=== PATIENT | female | born 1975 | race African-American/Black ===

== ENCOUNTER 2022-05-07 17:29 | Inpatient (IN) ==
[2022-05-07] MEDS ORDERED: cloNIDine 0.1 MG TABLET PO STA (17:48)
[2022-05-07] MEDS ORDERED: LORazepam 2 MG/1 ML VIAL IV STA (17:48)
[2022-05-07] MEDS ORDERED: SODIUM CHLORIDE 0.9% 1,000 ML IV STA (17:48)
[2022-05-07] MEDS ORDERED: ACETAMINOPHEN 500 MG TABLET PO STA (17:59)
[2022-05-07 18:01] LABS: Basophils % 0.2 % (0.0-0.8); Eosinophils % 0.3 % (0.00-10.9); Hematocrit 44.6 VOL% (35.7-47.0); Hemoglobin 14.2 GM/DL (12.0-16.0); Immature Granulocytes % 0.2 %; Immature Granulocytes Absolute 0.01 #; Lymphocytes # 1.5 10*3/uL (1.4-4.0); Lymphocytes % 24.3 % (21.3-54.2); Mean Corpuscular HGB Conc 31.8 GM/DL (32-36); Mean Corpuscular Volume 96.5 FL (87-102); Mean Platelet Volume 11.1 FL (9.6-12.0); Monocytes # 0.6 10*3/uL (0.11-0.8); Monocytes % 9.3 % (1.7-12.7); Neutrophils % 65.7 % (38.7-73.9); Platelet Count 217 T/CUMM (130-400); Red Blood Count 4.62 MC/CUMM (3.8-5.5); White Blood Count 6.1 T/CUMM (4-12)
[2022-05-07 18:18] LABS: Alanine Aminotransferase 27 U/L (13-56); Albumin 3.8 G/DL (3.4-5.0); Alkaline Phosphatase 125 U/L (45-117); Aspartate Amino Transferase 29 U/L (0-37); Blood Urea Nitrogen 12 MG/DL (7-18); Calcium 8.5 MG/DL (8.5-10.1); Carbon Dioxide 32 MMOL/L (21-32); Chloride 99 MMOL/L (98-107); Glucose 81 MG/DL (74-106); Osmolality,Calculated 271.8 MOS/KG (273-304); Potassium 4.3 MMOL/L (3.5-5.1); Sodium 137 MMOL/L (136-145); Total Protein 8.6 G/DL (6.4-8.2)
[2022-05-07 18:29] LABS: Acetaminophen < 2.0 UG/ML (10-30); Salicylate < 2.8 MG/DL (2.8-20)
[2022-05-07 18:39] LABS: Bacteria,Urine Occasional /HPF (Few); Mucus,Urine Occasional /LPF (Occasional); RBC,Urine 2 /HPF (0-4); Squamous Epithelial Cell,Urine Occasional /HPF (0-10); Urine Appearance Clear (Clear); Urine Color Yellow (Yellow)
[2022-05-07 18:40] LABS: Bilirubin,Urine Moderate mg/dL (Negative); Blood, Urine Small mg/dL (Negative); Glucose,Urine (UA) Negative (Negative); Ketones,Urine 80 mg/dL (Negative); Nitrite,Urine Negative (Negative); Protein,Urine >=300 mg/dL (Negative); Urine Specific Gravity >= 1.030 (1.001-1.035)
[2022-05-07 18:52] LABS: Barbiturates Screen,Urine Negative (Negative); Benzodiazepines Screen,Urine Negative (Negative); Cannabinoid Screen,Urine Negative (Negative); Opiate Screen,Urine Negative (Negative); Phencyclidine Screen,Urine Negative (Negative)
[2022-05-07] MEDS ORDERED: LACTULOSE 20 GM/30 ML UDCUP PO STA (19:19)
[2022-05-07] MEDS ORDERED: ONDANSETRON 4 MG/2 ML VIAL IV PRN (19:34)
[2022-05-07] MEDS: LACTATED RINGERS 1,000 ML IV SCH (20:15)
[2022-05-07] MEDS: ENOXAPARIN 40 MG/0.4 ML SYRINGE SUBCUT SCH (21:15)
[2022-05-08] MEDS: hydrALAZINE 20 MG/1 ML VIAL IV PRN ×3 (00:05→15:15)
[2022-05-08] MEDS: ALBUTEROL/IPRATROPIUM 3 ML NEB RESP TX PRN ×3 (00:50→15:40)
[2022-05-08] MEDS ORDERED: ACETAMINOPHEN 500 MG TABLET ONE (00:56)
[2022-05-08] MEDS ORDERED: ACETAMINOPHEN 500 MG TABLET PO STA (00:59)
[2022-05-08] MEDS ORDERED: ALBUTEROL/IPRATROPIUM 3 ML NEB RESP TX SCH (01:00)
[2022-05-08 04:42] LABS: Basophils % 0.1 % (0.0-0.8); Hematocrit 41.2 VOL% (35.7-47.0); Hemoglobin 12.7 GM/DL (12.0-16.0); Immature Granulocytes % 0.4 %; Immature Granulocytes Absolute 0.04 #; Lymphocytes # 1.9 10*3/uL (1.4-4.0); Lymphocytes % 18.4 % (21.3-54.2); Mean Corpuscular HGB Conc 30.8 GM/DL (32-36); Mean Platelet Volume 10.8 FL (9.6-12.0); Monocytes # 0.6 10*3/uL (0.11-0.8); Monocytes % 6.2 % (1.7-12.7); Neutrophils % 74.9 % (38.7-73.9); Platelet Count 199 T/CUMM (130-400); Red Blood Count 4.16 MC/CUMM (3.8-5.5); White Blood Count 10.1 T/CUMM (4-12)
[2022-05-08 05:05] LABS: Albumin 3.1 G/DL (3.4-5.0); Bilirubin,Total 0.4 MG/DL (0.20-1.00); Calcium 8.5 MG/DL (8.5-10.1); Thyroid Stimulating Hormone 0.241 uIU/ml (0.358-3.74); Total Protein 7.9 G/DL (6.4-8.2)
[2022-05-08] MEDS: ACETAMINOPHEN 325 MG TABLET PO PRN ×2 (09:30→22:30)
[2022-05-08] MEDS: PANTOPRAZOLE 40 MG TABLET PO SCH (09:30)
[2022-05-08] MEDS ORDERED: ALBUTEROL/IPRATROPIUM 3 ML NEB RESP TX PRN (11:01)
[2022-05-08] MEDS ORDERED: BENZONATATE 100 MG CAPSULE PO PRN (11:02)
[2022-05-08] MEDS: PIPERACILLIN/TAZOBACTAM 3,375 MG in SODIUM CHLORIDE 0.9% 100 ML IV SCH ×2 (13:43→21:20)
[2022-05-08] MEDS: amLODIPine 10 MG TABLET PO SCH (13:49)
[2022-05-08] MEDS: VANCOMYCIN INJ 1,000 MG in SODIUM CHLORIDE 0.9% 250 ML IV SCH (18:00)
[2022-05-08] MEDS: ENOXAPARIN 40 MG/0.4 ML SYRINGE SUBCUT SCH (21:23)
[2022-05-09] MEDS: VANCOMYCIN INJ 1,000 MG in SODIUM CHLORIDE 0.9% 250 ML IV SCH ×2 (02:09→14:42)
[2022-05-09] MEDS: PIPERACILLIN/TAZOBACTAM 3,375 MG in SODIUM CHLORIDE 0.9% 100 ML IV SCH ×3 (03:26→20:46)
[2022-05-09] MEDS: ACETAMINOPHEN 325 MG TABLET PO PRN (05:59)
[2022-05-09] MEDS: amLODIPine 10 MG TABLET PO SCH (09:10)
[2022-05-09] MEDS: PANTOPRAZOLE 40 MG TABLET PO SCH (09:10)
[2022-05-09] MEDS: SODIUM CHLORIDE 0.9% 1,000 ML IV SCH ×3 (10:57→16:20)
[2022-05-09] MEDS: LACTATED RINGERS 1,000 ML IV SCH (13:51)
[2022-05-09] MEDS: ENOXAPARIN 40 MG/0.4 ML SYRINGE SUBCUT SCH (20:46)
[2022-05-10] MEDS: VANCOMYCIN INJ 1,000 MG in SODIUM CHLORIDE 0.9% 250 ML IV SCH ×2 (01:03→14:59)
[2022-05-10] MEDS: PIPERACILLIN/TAZOBACTAM 3,375 MG in SODIUM CHLORIDE 0.9% 100 ML IV SCH ×3 (03:53→20:39)
[2022-05-10 06:10] LABS: Basophils % 0.4 % (0.0-0.8); Eosinophils # 0.2 10*3/uL (0.0-0.87); Eosinophils % 3.9 % (0.00-10.9); Hematocrit 42.4 VOL% (35.7-47.0); Hemoglobin 13.1 GM/DL (12.0-16.0); Immature Granulocytes % 0.4 %; Immature Granulocytes Absolute 0.02 #; Lymphocytes # 2.6 10*3/uL (1.4-4.0); Lymphocytes % 57.5 % (21.3-54.2); Mean Corpuscular HGB Conc 30.9 GM/DL (32-36); Mean Corpuscular Volume 98.4 FL (87-102); Mean Platelet Volume 11.4 FL (9.6-12.0); Monocytes # 0.4 10*3/uL (0.11-0.8); Monocytes % 9.2 % (1.7-12.7); Neutrophils % 28.6 % (38.7-73.9); Platelet Count 169 T/CUMM (130-400); Red Blood Count 4.31 MC/CUMM (3.8-5.5); Red Cell Distribution Width 14.3 % (9.3-17.3); White Blood Count 4.6 T/CUMM (4-12)
[2022-05-10] MEDS: SODIUM CHLORIDE 0.9% 1,000 ML IV SCH (06:34)
[2022-05-10 06:37] LABS: Alanine Aminotransferase 20 U/L (13-56); Albumin 2.8 G/DL (3.4-5.0); Alkaline Phosphatase 86 U/L (45-117); Aspartate Amino Transferase 17 U/L (0-37); Bilirubin,Total < 0.39 MG/DL (0.20-1.00); Blood Urea Nitrogen 7 MG/DL (7-18); Calcium 8.2 MG/DL (8.5-10.1); Carbon Dioxide 35 MMOL/L (21-32); Chloride 100 MMOL/L (98-107); Glucose 126 MG/DL (74-106); Osmolality,Calculated 274.7 MOS/KG (273-304); Potassium 3.3 MMOL/L (3.5-5.1); Sodium 138 MMOL/L (136-145); Total Protein 7.7 G/DL (6.4-8.2)
[2022-05-10 06:45] LABS: Eosinophils 3 % (0-10); Lymphocytes 48 % (20-55); Platelet Estimate Adequate; Total Cells Counted 100
[2022-05-10 06:46] LABS: Stomatocytes Few
[2022-05-10] MEDS ORDERED: POTASSIUM CHLORIDE 20 MEQ TABLET PO ONE (07:42)
[2022-05-10] MEDS: PANTOPRAZOLE 40 MG TABLET PO SCH (08:28)
[2022-05-10] MEDS: amLODIPine 10 MG TABLET PO SCH (08:28)
[2022-05-10] MEDS: hydrALAZINE 20 MG/1 ML VIAL IV PRN (12:18)
[2022-05-10] MEDS: ENOXAPARIN 40 MG/0.4 ML SYRINGE SUBCUT SCH (20:39)
[2022-05-11] MEDS: VANCOMYCIN INJ 1,000 MG in SODIUM CHLORIDE 0.9% 250 ML IV SCH ×3 (00:49→17:45)
[2022-05-11] MEDS: PIPERACILLIN/TAZOBACTAM 3,375 MG in SODIUM CHLORIDE 0.9% 100 ML IV SCH ×3 (03:10→20:41)
[2022-05-11 07:14] LABS: Basophils % 0.2 % (0.0-0.8); Eosinophils # 0.2 10*3/uL (0.0-0.87); Eosinophils % 4.5 % (0.00-10.9); Hematocrit 43.1 VOL% (35.7-47.0); Hemoglobin 13.2 GM/DL (12.0-16.0); Lymphocytes # 3.1 10*3/uL (1.4-4.0); Lymphocytes % 63.5 % (21.3-54.2); Mean Corpuscular HGB Conc 30.6 GM/DL (32-36); Mean Corpuscular Volume 97.7 FL (87-102); Mean Platelet Volume 11.5 FL (9.6-12.0); Monocytes # 0.3 10*3/uL (0.11-0.8); Monocytes % 6.1 % (1.7-12.7); Neutrophils % 25.7 % (38.7-73.9); Platelet Count 181 T/CUMM (130-400); Red Blood Count 4.41 MC/CUMM (3.8-5.5); Red Cell Distribution Width 14.3 % (9.3-17.3); White Blood Count 4.9 T/CUMM (4-12)
[2022-05-11 07:34] LABS: Calcium 8.3 MG/DL (8.5-10.1); Potassium 3.7 MMOL/L (3.5-5.1)
[2022-05-11 07:37] LABS: Osmolality,Calculated 279.4 MOS/KG (273-304)
[2022-05-11 07:54] LABS: Eosinophils 1 % (0-10); Hypochromia Slight; Lymphocytes 67 % (20-55); Platelet Estimate Adequate; Total Cells Counted 100
[2022-05-11] MEDS: PANTOPRAZOLE 40 MG TABLET PO SCH (09:03)
[2022-05-11] MEDS: amLODIPine 10 MG TABLET PO SCH (09:03)
[2022-05-11] MEDS: ENOXAPARIN 40 MG/0.4 ML SYRINGE SUBCUT SCH (20:38)
[2022-05-12] MEDS: VANCOMYCIN INJ 1,000 MG in SODIUM CHLORIDE 0.9% 250 ML IV SCH ×4 (00:58→17:48)
[2022-05-12] MEDS: PIPERACILLIN/TAZOBACTAM 3,375 MG in SODIUM CHLORIDE 0.9% 100 ML IV SCH ×3 (03:53→20:43)
[2022-05-12 04:30] LABS: Basophils % 0.4 % (0.0-0.8); Eosinophils # 0.2 10*3/uL (0.0-0.87); Eosinophils % 3.5 % (0.00-10.9); Hematocrit 40.9 VOL% (35.7-47.0); Hemoglobin 12.7 GM/DL (12.0-16.0); Immature Granulocytes % 0.4 %; Immature Granulocytes Absolute 0.02 #; Lymphocytes # 3.1 10*3/uL (1.4-4.0); Lymphocytes % 64.8 % (21.3-54.2); Mean Corpuscular HGB Conc 31.1 GM/DL (32-36); Mean Corpuscular Volume 97.1 FL (87-102); Monocytes # 0.3 10*3/uL (0.11-0.8); Monocytes % 7.1 % (1.7-12.7); Neutrophils % 23.8 % (38.7-73.9); Platelet Count 191 T/CUMM (130-400); Red Blood Count 4.21 MC/CUMM (3.8-5.5); Red Cell Distribution Width 14.1 % (9.3-17.3); White Blood Count 4.8 T/CUMM (4-12)
[2022-05-12 04:49] LABS: Calcium 8.6 MG/DL (8.5-10.1); Osmolality,Calculated 280.4 MOS/KG (273-304); Potassium 3.6 MMOL/L (3.5-5.1)
[2022-05-12 05:38] LABS: Eosinophils 5 % (0-10); Lymphocytes 63 % (20-55); Total Cells Counted 100
[2022-05-12 05:39] LABS: Platelet Estimate Adequate
[2022-05-12] MEDS: amLODIPine 10 MG TABLET PO SCH (08:36)
[2022-05-12] MEDS: PANTOPRAZOLE 40 MG TABLET PO SCH (08:36)
[2022-05-12] MEDS: ENOXAPARIN 40 MG/0.4 ML SYRINGE SUBCUT SCH (20:43)
[2022-05-13] MEDS ORDERED: VANCOMYCIN INJ 1,500 MG in SODIUM CHLORIDE 0.9% 500 ML IV ONE
[2022-05-13] MEDS: PIPERACILLIN/TAZOBACTAM 3,375 MG in SODIUM CHLORIDE 0.9% 100 ML IV SCH ×3 (04:05→20:45)
[2022-05-13 05:40] LABS: Basophils % 0.5 % (0.0-0.8); Eosinophils # 0.3 10*3/uL (0.0-0.87); Eosinophils % 7.1 % (0.00-10.9); Hematocrit 40.8 VOL% (35.7-47.0); Hemoglobin 12.7 GM/DL (12.0-16.0); Lymphocytes # 2.9 10*3/uL (1.4-4.0); Lymphocytes % 66.1 % (21.3-54.2); Mean Corpuscular HGB Conc 31.1 GM/DL (32-36); Mean Platelet Volume 10.5 FL (9.6-12.0); Monocytes # 0.3 10*3/uL (0.11-0.8); Monocytes % 7.4 % (1.7-12.7); Neutrophils % 18.9 % (38.7-73.9); Platelet Count 182 T/CUMM (130-400); Red Blood Count 4.25 MC/CUMM (3.8-5.5); Red Cell Distribution Width 13.8 % (9.3-17.3); White Blood Count 4.3 T/CUMM (4-12)
[2022-05-13 05:59] LABS: Calcium 8.1 MG/DL (8.5-10.1); Osmolality,Calculated 276.5 MOS/KG (273-304)
[2022-05-13 06:03] LABS: Eosinophils 11 % (0-10); Lymphocytes 65 % (20-55); Platelet Estimate Adequate; Total Cells Counted 100
[2022-05-13] MEDS: amLODIPine 10 MG TABLET PO SCH (08:45)
[2022-05-13] MEDS: PANTOPRAZOLE 40 MG TABLET PO SCH (08:45)
[2022-05-13] MEDS: lisinopriL 10 MG TABLET PO SCH (08:45)
[2022-05-13] MEDS: VANCOMYCIN INJ 1,250 MG in SODIUM CHLORIDE 0.9% 250 ML IV SCH ×2 (08:49→15:57)
[2022-05-13] MEDS: hydrALAZINE 20 MG/1 ML VIAL IV PRN (16:33)
[2022-05-13] MEDS: ENOXAPARIN 40 MG/0.4 ML SYRINGE SUBCUT SCH (21:00)
[2022-05-14] MEDS: VANCOMYCIN INJ 1,250 MG in SODIUM CHLORIDE 0.9% 250 ML IV SCH ×2 (00:13→09:26)
[2022-05-14] MEDS: PIPERACILLIN/TAZOBACTAM 3,375 MG in SODIUM CHLORIDE 0.9% 100 ML IV SCH (04:25)
[2022-05-14 05:22] LABS: Basophils % 0.4 % (0.0-0.8); Eosinophils # 0.4 10*3/uL (0.0-0.87); Eosinophils % 7.8 % (0.00-10.9); Hematocrit 39.2 VOL% (35.7-47.0); Hemoglobin 12.4 GM/DL (12.0-16.0); Immature Granulocytes % 0.2 %; Immature Granulocytes Absolute 0.01 #; Lymphocytes # 2.8 10*3/uL (1.4-4.0); Lymphocytes % 51.9 % (21.3-54.2); Mean Corpuscular HGB Conc 31.6 GM/DL (32-36); Mean Platelet Volume 11.2 FL (9.6-12.0); Monocytes # 0.5 10*3/uL (0.11-0.8); Monocytes % 8.9 % (1.7-12.7); Neutrophils % 30.8 % (38.7-73.9); Platelet Count 175 T/CUMM (130-400); Red Blood Count 4.04 MC/CUMM (3.8-5.5); Red Cell Distribution Width 13.9 % (9.3-17.3); White Blood Count 5.4 T/CUMM (4-12)
[2022-05-14 05:51] LABS: Calcium 8.7 MG/DL (8.5-10.1); Osmolality,Calculated 279.4 MOS/KG (273-304); Potassium 3.6 MMOL/L (3.5-5.1)
[2022-05-14 05:52] LABS: Eosinophils 3 % (0-10); Lymphocytes 57 % (20-55); Total Cells Counted 100
[2022-05-14 05:53] LABS: Microcytosis Slight; Target Cells Slight
[2022-05-14 05:54] LABS: Platelet Estimate Adequate
[2022-05-14 08:20] VITALS: BP 149/81
[2022-05-14] MEDS: amLODIPine 10 MG TABLET PO SCH (09:26)
[2022-05-14] MEDS: PANTOPRAZOLE 40 MG TABLET PO SCH (09:26)
[2022-05-14] MEDS: lisinopriL 10 MG TABLET PO SCH (09:26)
== END 2022-05-14 11:38 | disposition home or self-care (01) | DRG 816 ==
LOC: EDBD → EDUNIT# → N.ED 17:29 → N.EDINP 19:34 → SUATTDRO 19:34 → N.TELES 05-08 16:52
PROVIDERS: ADMIT Family Medicine; ATTEND Internal Medicine